=== PATIENT | male | born 1935 | race Caucasian/White ===

== ENCOUNTER 2016-07-09 13:55 | Inpatient (IN) ==
[2016-07-09 16:20] LABS: MANUAL DIFF NEEDED? NO
[2016-07-09 16:23] LABS: BASO% 0.1 % (0.0-0.8); EOS% 0.7 % (0.0-10.0); HEMATOCRIT 44.8 % (42.0-52.0); HEMOGLOBIN 15.6 g/dL (14.0-18.0); IMM GRAN# 0.04 X1000 (0.0-0.04); IMM GRAN% 0.3 % (0.0-0.5); LYMPH# 1.88 X1000 (1.2-3.4); LYMPH% 13.4 % (20.5-51.1); MCH 31.7 PG (27-31); MCHC 34.8 g/dL (33-37); MCV 91.1 FL (81-99); MONO% 8.6 % (1.7-9.3); MPV 8.9 FL (7.4-10.4); NEUT% 76.9 % (42.2-75.2); PLT 217 X1000 (130-400); RBC 4.92 XMIL (4.7-6.1)
[2016-07-09 16:38] LABS: AGAP 12; ALBUMIN 3.2 g/dL (3.5-5.0); ALKALINE PHOSPHATASE 84 U/L (32-122); BUN 22 mg/dL (8-22); CALCIUM 8.6 mg/dL (8.8-10.2); CHLORIDE 97 mmol/L (98-107); CK PROFILE 28 U/L (24-204); COSMO 274; GOT 16 U/L (10-34); GPT 13 U/L (10-44); POTASSIUM 4.4 mmol/L (3.5-5.1); SODIUM 136 mmol/L (136-145); TCO2 27 mmol/L (25-35); TOTAL BILIRUBIN 0.97 mg/dL (0.20-1.00); TOTAL PROTEIN 6.9 g/dL (6.3-8.3)
[2016-07-09] MEDS ORDERED: ATROVENT NEB INH SCH (16:45)
[2016-07-09] MEDS: DUONEB (A & A) INH SCH ×2 (16:52→20:16)
[2016-07-09] MEDS ORDERED: MYCOSTATIN SUSP PO SCH (17:00)
[2016-07-09] MEDS ORDERED: ALBUTEROL NEB INH SCH (17:00)
[2016-07-09 17:04] LABS: ALLEN TEST YES; BLOOD TYPE ARTERIAL; DRAW SITE R RADIAL; METHB 1.8 % (0.0-1.5); O2(CT) 19.3 mL/dL (15.0-23.0); PCO2(98.6) 38 mmHg (35-45); PO2(98.6) 55 mmHg (60-100); SAMPLE BLOOD; SAO2 93.9 % (95.0-100.0); THB 15.4 g/dL (11.5-17.4)
[2016-07-09 17:05] LABS: MODALITY CANNULA
[2016-07-09] MEDS: PROTONIX IV SCH (17:05)
[2016-07-09] MEDS: SOLU-MEDROL IV SCH ×2 (17:06→23:52)
[2016-07-09] MEDS: SODIUM CHLORIDE 0.9% INJ SCH (17:12)
[2016-07-09] MEDS: MYCOSTATIN SUSP PO SCH ×2 (17:14→19:54)
[2016-07-09] MEDS: NS 1,000 ML IV SCH (17:16)
--- NOTE | 2016-07-09 17:50 | Diag Imaging Result Document ---
PROCEDURE NAME: CHEST-2 VIEWS - 07/09/2016 CHEST TWO-VIEWS: COMPARISON: Compared to 12/05/2015. FINDINGS: Heart size is normal. There is mild subsegmental atelectasis or scarring at the lateral left base. The remainder of the lungs appear essentially clear. The lungs appear mildly hyperexpanded which may relate to COPD. There is an apparent tiny right pleural effusion. There is no pneumothorax seen. There is thoracic spondylosis or ankylosis noted. IMPRESSION: 1. Mildly hyperexpanded lungs which may relate to COPD. Mild subsegmental atelectasis or scarring at left base. No evidence of pneumonia. 2. Apparent tiny right pleural effusion. No pneumothorax.
--- NOTE | 2016-07-09 18:17 | HISTORY AND PHYSICAL ---
CHIEF COMPLAINT: Shortness of breath. HISTORY OF PRESENT ILLNESS: An 81-year-old white gentleman, known case of advanced COPD, not doing well for 7-10 days. The patient had increasing cough, chest congestion, shortness of breath. The patient went to Urgent Care. He was prescribed Levaquin and prednisone. After taking Levaquin the patient did have sore mouth, diarrhea, increasing shortness of breath. The patient thought he was allergic to Levaquin, stopped taking medication. The patient came to see me. I evaluated the patient, changed antibiotics to doxycycline. The patient claims he was not feeling well. Not able to eat well. He was getting more short of breath and wheezing, decreased exercise tolerance. The patient was using his home oxygen and nebulizer treatment. Basically the patient was not responding to outpatient treatment. I evaluated patient in my office. The patient had bilateral diffuse wheezing. Decided to admit him for further care. The patient was losing weight. He denied any typical chest pain, palpitation, orthopnea or PND. No abdominal pain. The patient did have mild nausea. No vomiting. No diarrhea, blood, or mucus in the stool. Denied dysuria or hematuria. Patient does have runny nose. No sinus drainage, unquantified weight loss. The patient does feel depressed at times due to his underlying medical condition. No joint swelling or redness. No focal weakness. No further history available at this time. ALLERGIES: No known drug allergy. HOME MEDICATIONS: Include Coreg, Imdur, Synthroid, Zocor. PAST MEDICAL HISTORY: Significant for hypertension, hypothyroidism, hyperlipidemia, gastritis, COPD. The patient is on home oxygen and nebulizer treatment. PERSONAL HISTORY: Single, nonsmoker. Denied alcohol or substance abuse. FAMILY HISTORY: Noncontributory. REVIEW OF SYSTEMS: As per HPI. PHYSICAL EXAMINATION: GENERAL: Elderly white gentleman in mild distress. VITAL SIGNS: On admission blood pressure 126/68, pulse 85, respiration 22, temperature 97.8 degrees. SKIN: Normal turgor. No rash or petechiae. HEENT: Head atraumatic, normocephalic. [place] conjunctivae. Anicteric sclerae. Extraocular muscle movement normal. Fundus cannot be penetrated. Good oral hygiene. The patient does have a sore tongue. No oral thrush. Ear and nose benign. NECK: Supple. No JVD, thyromegaly or lymphadenopathy. CHEST: Bilateral good air entry present. Bilateral expiratory wheezing. No rales. CARDIOVASCULAR: S1 and S2 heard. No gallop or thrill. ABDOMEN: Soft, globular. Bowel sounds present. EXTREMITIES: No cyanosis, clubbing. No acute DVT. BOOK AUTHOR: Alert, awake, able to move all 4 limbs. LABORATORY DATA: Did reveal leukocytosis with left shift. Blood gas, pH 7.4, pCO2 38, PO2 55, O2 saturation was 89.4, this was done on 2 L. Electrolytes were fairly benign. Cardiac isoenzymes negative. ProBNP was 550. Chest x-ray, official result is pending. CONSIDERATION: 1. Chronic obstructive pulmonary disease exacerbation, not responding to outpatient treatment. 2. Chronic hypoxemic respiratory failure. 3. Gastritis and reflux disease. 4. Hypothyroidism. 5. History of benign prostatic hypertrophy. 6. Coronary artery disease. 7. Hyperlipidemia. PLAN: Admit patient to hospital. Oxygen, IV steroid, pulmonary toilet. Patient reaction to Levaquin was more of a sore tongue and diarrhea. I am going to resume Levaquin. Overall plan discussed at length with the patient and family. They are in agreement. Will do GI and DVT prophylaxis. Resume his home medicine.
[2016-07-09] MEDS: ZOCOR PO SCH (19:54)
[2016-07-09] MEDS: COREG PO SCH (19:54)
[2016-07-10] MEDS: NS 1,000 ML IV SCH (02:56)
[2016-07-10] MEDS: DUONEB (A & A) INH SCH ×4 (03:30→20:17)
--- NOTE | 2016-07-10 05:33 | EKG Report ---
Test Performed on : 07/09/2016 6:14:35 PM Test Reason : COPD exacerbation Blood Pressure : / mmHG Vent. Rate : 081 BPM Atrial Rate : 081 BPM P-R Int : 200 ms QRS Dur : 104 ms QT Int : 410 ms P-R-T Axes : 072 -06 066 degrees QTc Int : 476 ms Normal sinus rhythm. Normal ECG When compared with ECG of 24-SEP-2013 10:38, Criteria for Inferior infarct are no longer present Nonspecific T wave abnormality no longer evident in Lateral leads Confirmed by Bernadine WHALEY, Ye Medrano ([id number]) on 07/11/2016 7:58:38 PM
[2016-07-10] MEDS: LOVENOX SUBQ SCH (06:09)
--- NOTE | 2016-07-10 07:01 | PROGRESS NOTE ---
DATE: 07/10/2016 SUBJECTIVE: Mr. White is feeling some better. Shortness of breath is less. Does have cough and chest congestion. No nausea or vomiting. Oral soreness is less. Patient admitted with COPD exacerbation, not responding to outpatient treatment. OBJECTIVE: Vital Signs: Vital signs reviewed. Neck: Supple. No JVD. Lungs: Bilateral occasional wheezing. CVS: S1 and S2 heard. Abdomen: Soft, globular. Bowel sounds present. BARREL ENDSHAKER ADJUSTER: Alert, awake. Able to move all 4 limbs. Laboratory Data: Chest x-ray results reviewed. CONSIDERATIONS: 1. Chronic obstructive pulmonary disease exacerbation. The patient had leukocytosis. I am going to add Levaquin. His reaction to Levaquin was oral sores. 2. Oral sores could be due to Ayla. Patient is on nystatin and Magic Mouthwash. 3. Hyperlipidemia. 4. Gastritis. PLAN: Labs and medication noted. Overall plan discussed with the patient and he is in agreement.
[2016-07-10] MEDS: LEVAQUIN 500 MG/D5W 100 ML IV SCH (07:35)
[2016-07-10] MEDS: SOLU-MEDROL IV SCH ×2 (08:04→16:00)
[2016-07-10] MEDS: SYNTHROID PO SCH (08:09)
[2016-07-10] MEDS: COREG PO SCH ×2 (08:09→21:39)
[2016-07-10] MEDS: IMDUR PO SCH (08:09)
[2016-07-10] MEDS: MBX SOLUTION MT SCH ×3 (08:10→16:20)
[2016-07-10] MEDS: MYCOSTATIN SUSP PO SCH ×4 (08:16→21:39)
[2016-07-10] MEDS ORDERED: LASIX IV ONE (11:28)
--- NOTE | 2016-07-10 12:32 | Diag Imaging Result Document ---
PROCEDURE NAME: CHEST-PORTABLE - 07/10/2016 AP PORTABLE CHEST AT 1200 HOURS: FINDINGS: Compared to the previous study of 07/09/2016, there has been no significant change in the appearance of the chest. Compared to 12/05/2015, there has been some increase in prominence of an opacity over the lingula. There is an apparent area of fibrosis laterally in the lingula seen on the CT scan of 09/24/2013 which is probably responsible for this abnormality. IMPRESSION: No acute disease.
[2016-07-10 13:25] LABS: URINE MICRO REVIEW NEEDED? NO; URINE SOURCE CLEAN CATCH
[2016-07-10 13:32] LABS: BILIRUBIN URINE NEGATIVE (NEGATIVE); BLOOD URINE NEGATIVE (NEGATIVE); COLOR YELLOW; GLUCOSE URINE NEGATIVE (NEGATIVE); LEUKOCYTES URINE NEGATIVE (NEGATIVE); NITRITE URINE NEGATIVE (NEGATIVE); PH URINE 5.5; PROTEIN URINE NEGATIVE (NEGATIVE); SP GRAVITY URINE 1.016; TURBIDITY URINE CLEAR (CLEAR); UROBILINOGEN URINE NORMAL (NORMAL)
[2016-07-10 13:33] LABS: UR EPITHELIAL CELLS <10 /HPF (<10); URINE BACTERIA NEGATIVE /HPF; URINE RBC <10 /HPF (<10); URINE WBC <10 /HPF (<10)
[2016-07-10] MEDS: SODIUM CHLORIDE 0.9% INJ SCH (16:00)
[2016-07-10] MEDS: PROTONIX IV SCH (16:00)
[2016-07-10] MEDS: ZOCOR PO SCH (21:38)
[2016-07-11] MEDS: SOLU-MEDROL IV SCH ×3 (00:26→15:38)
[2016-07-11] MEDS: DUONEB (A & A) INH SCH ×4 (03:04→21:05)
[2016-07-11] MEDS: LOVENOX SUBQ SCH (05:56)
[2016-07-11 07:25] LABS: HEMATOCRIT 44.8 % (42.0-52.0); HEMOGLOBIN 15.4 g/dL (14.0-18.0); IMM GRAN# 0.07 X1000 (0.0-0.04); IMM GRAN% 0.3 % (0.0-0.5); LYMPH# 0.71 X1000 (1.2-3.4); LYMPH% 3.1 % (20.5-51.1); MANUAL DIFF NEEDED? YES; MCHC 34.4 g/dL (33-37); MCV 90.1 FL (81-99); MONO# 0.76 X1000 (0.11-0.59); MONO% 3.4 % (1.7-9.3); MPV 9.5 FL (7.4-10.4); NEUT% 93.2 % (42.2-75.2); PLT 249 X1000 (130-400); RBC 4.97 XMIL (4.7-6.1)
--- NOTE | 2016-07-11 07:36 | PROGRESS NOTE ---
DATE: 07/11/2016 SUBJECTIVE: Mr. White is feeling better. Yesterday, patient was more short of breath, congested, evidence of fluid overload. We stopped fluid. We gave him some Lasix. The patient did well. His O2 saturation was low, which improved. PHYSICAL EXAMINATION: Vital Signs: Vital signs noted. Neck: Supple. No JVD. Lungs: Bilateral good air entry present. Occasional wheezing. CVS: S1 and S2 heard. Abdomen: Soft, globular. Bowel sounds present. AGENCY OWNER: Alert, awake. Able to move all 4 limbs. No acute DVT. CONSIDERATION: 1. Patient admitted with acute exacerbation of chronic obstructive pulmonary disease. The patient does have advanced chronic obstructive pulmonary disease. 2. Chronic respiratory failure. 3. Hypothyroidism. 4. Hyperlipidemia. 5. Oral sores. 6. Gastritis. PLAN: Plan is to taper his steroid to 40 mg IV q.8 tomorrow. If clinical condition permits, we will plan discharging patient home over the weekend. His repeat chest x-ray results reviewed. We will get physical therapy evaluation. I will also check his blood work today. Overall plan discussed at length with the patient and he is in agreement.
[2016-07-11 07:57] LABS: ALBUMIN 3.2 g/dL (3.5-5.0); CALCIUM 8.5 mg/dL (8.8-10.2); MAGNESIUM 2.4 mg/dL (1.5-2.7); POTASSIUM 3.9 mmol/L (3.5-5.1); TOTAL BILIRUBIN 0.37 mg/dL (0.20-1.00); TOTAL PROTEIN 6.9 g/dL (6.3-8.3)
[2016-07-11 07:58] LABS: LYMPHS 4 % (21-51); MONO 2 % (1-9)
[2016-07-11] MEDS: COREG PO SCH (08:25)
[2016-07-11] MEDS: SYNTHROID PO SCH (08:25)
[2016-07-11] MEDS: IMDUR PO SCH (08:25)
[2016-07-11] MEDS: MYCOSTATIN SUSP PO SCH ×4 (08:26→23:52)
[2016-07-11] MEDS: LEVAQUIN 500 MG/D5W 100 ML IV SCH (08:26)
[2016-07-11] MEDS: MBX SOLUTION MT SCH ×3 (08:26→19:00)
[2016-07-11] MEDS: DUONEB (A & A) INH PRN (11:19)
[2016-07-11] MEDS: SODIUM CHLORIDE 0.9% INJ SCH (15:38)
[2016-07-11] MEDS: PROTONIX IV SCH (15:38)
[2016-07-11] MEDS: ZOCOR PO SCH (23:52)
[2016-07-12] MEDS: SOLU-MEDROL IV SCH ×4 (02:00→19:00)
[2016-07-12] MEDS: COREG PO SCH ×3 (02:00→21:03)
[2016-07-12] MEDS: DUONEB (A & A) INH SCH ×4 (03:00→20:02)
[2016-07-12] MEDS: LOVENOX SUBQ SCH (05:34)
--- NOTE | 2016-07-12 10:16 | PROGRESS NOTE ---
DATE: 07/12/2016 Mr. White was admitted with COPD in acute exacerbation. He has some expiratory wheezing at the present time. He is using oxygen. Overall condition is unchanged. He has COPD. He has a history of gastritis and reflux disease and has a history of hyperlipidemia. Will continue the current management on him. He is getting IV Levaquin. He is also on methylprednisone, which I am going to reduce to 40 mg q.8 hours. -8
[2016-07-12] MEDS: LEVAQUIN 500 MG/D5W 100 ML IV SCH (10:50)
[2016-07-12] MEDS: MYCOSTATIN SUSP PO SCH ×4 (11:01→21:03)
[2016-07-12] MEDS: SYNTHROID PO SCH (11:02)
[2016-07-12] MEDS: MBX SOLUTION MT SCH ×3 (11:02→18:53)
[2016-07-12] MEDS: IMDUR PO SCH (11:02)
[2016-07-12] MEDS: DUONEB (A & A) INH PRN ×2 (11:23→22:44)
[2016-07-12] MEDS: PROTONIX IV SCH (18:52)
[2016-07-12] MEDS: SODIUM CHLORIDE 0.9% INJ SCH (18:53)
[2016-07-12] MEDS: ZOCOR PO SCH (21:03)
[2016-07-13] MEDS ORDERED: MAGNESIUM SULFATE 1 GM/D5W 1 GM/100 ML IVPB IV ONE (00:52)
[2016-07-13] MEDS: SOLU-MEDROL IV SCH ×3 (02:00→18:00)
[2016-07-13] MEDS: DUONEB (A & A) INH SCH ×4 (03:20→20:10)
[2016-07-13] MEDS: LOVENOX SUBQ SCH (06:00)
[2016-07-13] MEDS: SYNTHROID PO SCH (09:00)
[2016-07-13] MEDS: LEVAQUIN 500 MG/D5W 100 ML IV SCH (09:00)
[2016-07-13] MEDS: MBX SOLUTION MT SCH ×3 (09:00→17:00)
[2016-07-13] MEDS: IMDUR PO SCH (09:00)
[2016-07-13] MEDS: COREG PO SCH ×2 (09:00→22:00)
[2016-07-13] MEDS: MYCOSTATIN SUSP PO SCH ×4 (09:00→22:00)
--- NOTE | 2016-07-13 14:20 | PROGRESS NOTE ---
DATE: 07/12/[address] Callejas. INTERVAL HISTORY: The patient is supposed to go home this weekend and around midnight patient had 2 episodes of 13-beat nonsustained ventricular tachycardia completely asymptomatic. He denies of any chest pain. Continues to have a little bit shortness of breath. Patient has been in and out of bed asking for nebulizers treatment. Patient was admitted on 07/09/2016. Past medical history, past surgical history, medicines were reviewed. REVIEW OF SYSTEMS: HEENT: No headache. No vision problems. No earache. No sore throat. Neck: No neck pain. No goiter. Cardiopulmonary: No chest pain, no palpitations, shortness of breath. No PND. No orthopnea. No edema. GI: No nausea, vomiting, abdominal pain. PHYSICAL EXAMINATION: Vital Signs: He is afebrile, blood pressure is 124/64. Not in respiratory distress. HEENT: Atraumatic, normocephalic. Prominent eyeballs. Neck: Is supple. No lymphadenopathy. JVD is not elevated. Chest: Bilateral wheezing. Heart: Distant heart sounds. No murmurs appreciated. Belly: Soft, obese, and nontender. Extremities: No peripheral edema. Neurologic: No obvious deficits. INVESTIGATIONS: EKG showing normal sinus, nothing acute. QT interval is normal, 465 ms. Cardiac enzymes were negative. The patient was given 1 dose of magnesium sulfate. ASSESSMENT AND PLAN: 1. Chronic obstructive pulmonary disease exacerbation on basically nebulizers, IV Solu-Medrol 40 mg q.8 and Levaquin. 2. Nonsustained ventricular tachycardia x2 asymptomatic. Rule out structural heart disease and will hold the discharge and consult with computer hardware developer contract design agent. 3. DVT prophylaxis with Lovenox. 4. Hypothyroidism on Synthroid. 5. Gastrointestinal prophylaxis with IV Protonix. 6. Hypertension on Coreg, isosorbide. 7. Hyperlipidemia on Zocor. 8. Oral thrush on nystatin. 9. Will repeat the labs in the morning. Will discuss with Dr. Paul who is on-call for cardiology. 10. Will follow up. cc: MD Tai Braun MD
[2016-07-13] MEDS: PROTONIX IV SCH (16:00)
[2016-07-13] MEDS: SODIUM CHLORIDE 0.9% INJ SCH (16:00)
--- NOTE | 2016-07-13 21:33 | EKG Report ---
Test Performed on : 07/13/2016 00:57:20 AM Test Reason : SOB, COPD exac. Blood Pressure : / mmHG Vent. Rate : 069 BPM Atrial Rate : 069 BPM P-R Int : 180 ms QRS Dur : 104 ms QT Int : 448 ms P-R-T Axes : 071 -20 048 degrees QTc Int : 480 ms Normal sinus rhythm. Prolonged QT Abnormal ECG When compared with ECG of 09-JUL-2016 18:14, No significant change was found Confirmed by Siddhartha WHALEY, Oscar Raphael ([id number]) on 07/14/2016 12:47:30 PM
--- NOTE | 2016-07-13 21:33 | EKG Report ---
Test Performed on : 07/13/2016 07:13:33 AM Test Reason : admission Blood Pressure : / mmHG Vent. Rate : 069 BPM Atrial Rate : 069 BPM P-R Int : 190 ms QRS Dur : 104 ms QT Int : 434 ms P-R-T Axes : 066 -12 047 degrees QTc Int : 465 ms Normal sinus rhythm. Normal ECG When compared with ECG of 13-JUL-2016 07:12, (Unconfirmed) No significant change was found Confirmed by Siddhartha WHALEY, Oscar Raphael ([id number]) on 07/14/2016 12:54:32 PM
[2016-07-13] MEDS: ZOCOR PO SCH (22:00)
[2016-07-14] MEDS: SOLU-MEDROL IV SCH ×2 (02:52→16:05)
[2016-07-14] MEDS: DUONEB (A & A) INH SCH ×4 (03:14→20:15)
[2016-07-14 04:40] LABS: ALLEN TEST YES; BE 3.8 mmoll (-3.0-3.0); BLOOD TYPE ARTERIAL; DRAW SITE R RADIAL; METHB 1.8 % (0.0-1.5); O2(CT) 17.9 mL/dL (15.0-23.0); PCO2(98.6) 42 mmHg (35-45); SAMPLE BLOOD; THB 14.8 g/dL (11.5-17.4); pH(98.6) 7.44 (7.35-7.45)
[2016-07-14 04:41] LABS: MODALITY ROOM AIR; PO2(98.6) 46 mmHg (60-100)
[2016-07-14] MEDS: LOVENOX SUBQ SCH (07:01)
[2016-07-14 07:55] LABS: BASO% 0.1 % (0.0-0.8); HEMATOCRIT 43.3 % (42.0-52.0); HEMOGLOBIN 14.9 g/dL (14.0-18.0); IMM GRAN# 0.02 X1000 (0.0-0.04); IMM GRAN% 0.2 % (0.0-0.5); LYMPH# 0.46 X1000 (1.2-3.4); LYMPH% 4.7 % (20.5-51.1); MANUAL DIFF NEEDED? YES; MCH 31.9 PG (27-31); MCHC 34.4 g/dL (33-37); MCV 92.7 FL (81-99); MONO# 0.51 X1000 (0.11-0.59); MONO% 5.3 % (1.7-9.3); MPV 9.6 FL (7.4-10.4); NEUT% 89.7 % (42.2-75.2); PLT 256 X1000 (130-400); RBC 4.67 XMIL (4.7-6.1)
[2016-07-14 08:00] LABS: AGAP 9; BUN 38 mg/dL (8-22); CALCIUM 8.2 mg/dL (8.8-10.2); CHLORIDE 104 mmol/L (98-107); CK PROFILE 23 U/L (24-204); COSMO 294; MAGNESIUM 2.7 mg/dL (1.5-2.7); POTASSIUM 4.4 mmol/L (3.5-5.1); SODIUM 142 mmol/L (136-145); TCO2 29 mmol/L (25-35)
[2016-07-14 08:32] LABS: LYMPHS 10 % (21-51); MONO 4 % (1-9)
[2016-07-14] MEDS: MBX SOLUTION MT SCH ×3 (08:40→17:50)
[2016-07-14] MEDS: LEVAQUIN 500 MG/D5W 100 ML IV SCH (08:43)
[2016-07-14] MEDS: IMDUR PO SCH (08:43)
[2016-07-14] MEDS: SYNTHROID PO SCH (08:43)
[2016-07-14] MEDS: COREG PO SCH ×2 (08:43→21:36)
[2016-07-14] MEDS: MYCOSTATIN SUSP PO SCH ×4 (08:45→21:44)
[2016-07-14] MEDS: DUONEB (A & A) INH PRN ×2 (09:01→22:28)
--- NOTE | 2016-07-14 13:05 | Diag Imaging Result Document ---
PROCEDURE NAME: CHEST-1 VIEW - 07/14/2016 PORTABLE CHEST: Compared with 07/10/2016. FINDINGS: Heart size is normal. There are possibly mild COPD changes. The lungs appear stable and grossly clear of acute changes. There is no pleural effusion or pneumothorax identified. IMPRESSION: Stable chest.
--- NOTE | 2016-07-14 13:30 | PROGRESS NOTE ---
DATE: 07/14/[address] Callejas. SUBJECTIVE: The patient is not offering any complaints. No palpitations. I did review the can line examiner. He did not have any further episodes of nonsustained ventricular tachycardia. He had 2 episodes. He has been out of the bed, eating well. No chest pain, palpitations. A little bit of shortness of breath. The patient's daughter was at the bedside. PAST MEDICAL HISTORY: Reviewed. PAST SURGICAL HISTORY: Reviewed. MEDICATIONS: Reviewed. REVIEW OF SYSTEMS: None reported. PHYSICAL EXAMINATION: Vital Signs: Afebrile. Vitals are stable. HEENT: Atraumatic, normocephalic. Pupils equal, reactive to light. Neck: Supple. Chest: Scattered wheezing. Heart: Sounds are regular. Abdomen: Belly is soft, obese, nontender. Good bowel sounds. No peripheral edema, cyanosis. No obvious neurological deficits. INVESTIGATIONS: White cell count 9.6, came down from 22, hematocrit 43, platelets 256,000. ABG pH is 7.44, pCO2 42, PO2 46 on room air. SMA 7: Sodium 142, potassium 4.4, chloride 104, BUN 38, creatinine 1.1, glucose 135, magnesium 2.7. Cardiac enzymes are normal. ProBNP 862. ASSESSMENT AND PLAN: 1. Chronic obstructive pulmonary disease. Basically he needs home oxygen based on the ABGs. Decreased with IV Solu-Medrol 40 mg q.12 hours. On Levaquin. 2. Nonsustained ventricular tachycardia. Magnesium is normal. Cardiac enzymes are normal. Waiting for Dr. Paul to consult. Discussed with the patient's daughter we will hold discharging home until the branch examiner sees him. Dr. Callejas is going to follow up. cc: MD Tai Braun MD
--- NOTE | 2016-07-14 16:10 | CONSULTATION ---
DATE OF CONSULTATION: 07/14/2016 REQUESTING PHYSICIAN: Hospitalist Service REASON FOR CONSULTATION: Ventricular tachycardia. HISTORY OF PRESENT ILLNESS: Mr. White is an 81-year-old male who was admitted to the hospital about 4 days ago on 07/09/2016. The patient presented to Dr. Callejas' s office with complaints of increasing dyspnea. The patient has a known case of advanced COPD. He was treated medically for several days; however, he did not seem to improve, and therefore admission to the hospital for IV medication and in-hospital care was recommended. The patient over the course of the past few days has gradually noted improvement. He denies having any chest pain; however, he does get tightness from time to time, and that seems to get better whenever he uses inhalers. He has not experienced any angina. He has not experienced any dizziness, palpitations or syncope. He has not experienced any claudication or swelling of the legs. There are no varicose veins and no evidence of redness or pain in the calves. On the evening of 07/12/2016, his gambling monitor revealed 1 run of 15 beats of nonsustained ventricular tachycardia that was not noted by the patient. That led to this consultation. PAST MEDICAL HISTORY: Positive for long-term diagnosis of COPD. The patient has been on home oxygen 2.5 L for a while. He gets periodic exacerbations. The patient has a history of hypertension also for a number of years. He has history of hyperlipidemia. In 2008, he was diagnosed with severe coronary artery disease after he underwent a left heart catheterization at [facility] under Dr. Malcom Hall. They found a complete occlusion of the mid to distal circumflex and also a severe lesion in the right coronary artery. He has been clinically stable from this viewpoint. The last time that he had an imaging study was in 2012, and at that time they reported on an echocardiogram that his ejection fraction was in the order of 55% with no evidence of any significant wall motion abnormality. His cardiac status, as far as we know, has not changed since then. Of note, his 12-lead electrocardiogram done at 7:00 a.m. on 07/13/2016 shows nothing really of any significance. His history is also positive for previous pneumonia. He has had some carotid artery stenosis. He has had hypothyroidism. He has been diagnosed with prostate cancer. PAST SURGICAL HISTORY: He has had thyroid surgery, prostate surgery. SOCIAL HISTORY: Positive for being a . He has 2 grownup daughters. He used to work for [employer] and retired eventually from [employer] in [place] in 2001. He smoked up until 10 years ago, and then he quit. FAMILY HISTORY: Not significant for any major heart problem. HOME MEDICATIONS: Atrovent inhaler and albuterol nebulizer as needed, levothyroxine 88 mcg daily, carvedilol 6.25 twice a day, simvastatin 20 mg at bedtime, isosorbide mononitrate 60 mg daily. REVIEW OF SYSTEMS: He is chronically short of breath, and other than that, there is nothing really remarkable. He has had poor appetite lately. He has lost some weight. His weight now is 156 pounds. The last time he was seen at the office, it was 164. He was seen in the office last time in 08/2015. Multiple systems were reviewed, and no other significant findings. PHYSICAL EXAMINATION: Blood pressure is 158/72, temperature 97.4, pulse 78, respirations 14. He is awake, alert and oriented, chronically ill, in no distress. HEENT is unremarkable. Chest: Multiple rales bilaterally with diminished breath sounds. Decreased excursion of the lungs. Hyperresonance to percussion. Heart sounds are regular and rhythmic. I do not hear a gallop or murmur. Heart sounds are muffled by the respiratory noises. Abdomen: Nontender, soft. No hepatomegaly. Extremities: Good pulses. No peripheral edema. Neurologic: He moves all 4 extremities, has no obvious deficits. He is cooperative, alert and oriented x3. DIAGNOSTIC DATA: Blood work shows sodium 142, potassium 4.4, BUN is 38, creatinine 1.1, chloride 104, carbon dioxide 29. Blood gas on room air shows pO2 of 46, pCO2 of 42, pH of 7.44. White count is 9690, hemoglobin 14.9 g, with 86% neutrophils, platelet count is normal. Chest x-ray done on 07/10/2016 was reported as normal. Of note, multiple troponin levels have been checked over the course of the past 5 days, and all of them are negative. His Pro BNP level has been barely elevated, initially at 550, 670 and then 862 pg/ml. IMPRESSION: 1. Asymptomatic episode of nonsustained ventricular tachycardia. 2. History of severe coronary artery disease, 2-vessel disease, diagnosed in 2008, without any ongoing symptoms of angina pectoris. 3. Exacerbation of severe advanced chronic obstructive pulmonary disease, on termite control servicer home oxygen. 4. History of hypertension. 5. History of hyperlipidemia. 6. History of hypothyroidism. RECOMMENDATIONS: From a cardiology viewpoint, I do not think we need to do anything different. We really have to focus on treating his COPD exacerbation. He has no specific symptoms attributable to this incidental finding. No further testing is recommended, and please refer the patient back to the office for followup upon discharge. Consideration may be given at watching him for fluid overload if IV fluids are continued over the course of the next few days. Pantoine Rivas may be helpful in that case. Thank you for asking us to participate in his evaluation. Best regards. cc: MD Tai Navas MD MTDD
[2016-07-14] MEDS: SODIUM CHLORIDE 0.9% INJ SCH (17:10)
[2016-07-14] MEDS: PROTONIX IV SCH (17:10)
[2016-07-14] MEDS: ZOCOR PO SCH (21:36)
[2016-07-15] MEDS: DUONEB (A & A) INH SCH ×3 (03:03→15:16)
[2016-07-15] MEDS: LOVENOX SUBQ SCH (05:56)
[2016-07-15] MEDS: SOLU-MEDROL IV SCH (05:56)
--- NOTE | 2016-07-15 08:00 | PROGRESS NOTE ---
DATE: 07/15/2016 SUBJECTIVE: Mr. White is feeling better. Chest congestion and cough improving. Shortness of breath is less. No fever or chills. Oral intake is fair. No nausea or vomiting. The patient did have an episode of asymptomatic ventricular tachycardia, short run. Commercial Lines Account Assistant recommendation reviewed. OBJECTIVE: Vital signs: Noted. Neck: Supple. No JVD. Lungs: Bilateral good air entry present. CVS: S1 and S2 heard. Abdomen: Soft, globular. Bowel sounds present. TECHNOLOGY ADMINISTRATOR: Alert, awake. Able to move all 4 limbs. CONSIDERATIONS: 1. Chronic obstructive pulmonary disease exacerbation. 2. Bronchitis. 3. Ventricular tachycardia. 4. Hypertension. 5. Hypothyroidism. PLAN: Labs and medication noted. I am going to stop Solu-Medrol. Continue the rest of the treatment. Ambulate the patient. If clinical condition permits, I am planning to discharge patient home today. cc: Tai Callejas MD
[2016-07-15] MEDS ORDERED: PREDNISONE PO SCH (09:00)
[2016-07-15] MEDS: SYNTHROID PO SCH (09:48)
[2016-07-15] MEDS: COREG PO SCH (09:48)
[2016-07-15] MEDS: IMDUR PO SCH (09:48)
[2016-07-15] MEDS: LEVAQUIN 500 MG/D5W 100 ML IV SCH (09:48)
[2016-07-15] MEDS: MYCOSTATIN SUSP PO SCH (09:49)
[2016-07-15] MEDS: MBX SOLUTION MT SCH (09:49)
[2016-07-15] MEDS ORDERED: PROTONIX PO SCH (16:00)
[2016-07-15 17:24] VITALS: BP 149/57
--- NOTE | 2016-08-15 20:19 | DISCHARGE SUMMARY ---
ADMISSION DATE: 07/09/2016 DISCHARGE DATE: 07/15/2016 FINAL DISCHARGE DIAGNOSES: 1. Chronic obstructive pulmonary disease exacerbation most likely due to bronchitis, ventricular tachycardia, hypertension, hypothyroidism, oral sores, gastritis and reflux disease. 2. Coronary artery disease. HISTORY OF PRESENT ILLNESS: Mr. White is an 81-year-old, white gentleman admitted with chest congestion, cough, shortness of breath, not responding to outpatient treatment. The patient was getting more sicker. He had oral sores. Patient was not able to take anything by mouth. He was losing weight. The patient went to Urgent Care. He was given medication but the patient was getting sicker and weak. I evaluated the patient in the office and decided to admit him for further care. HOSPITAL COURSE: Patient was treated with IV hydration, IV steroids, pulmonary toilet, bronchodilator care. The patient developed fluid overload which was treated with IV Lasix. We continued his home medicine. The patient was given Magic Mouthwash. We gradually advanced his diet. The patient's clinical condition stabilized and improved. His weakness improved, shortness of breath improved. Hospital course complicated by ventricular tachycardia. Cardiology consultation obtained. Recommendations reviewed. The patient was doing much better. He received maximum benefit of hospitalization. His weakness improved. Oral intake was getting better. I decided to discharge the patient home. I re-evaluated the patient again that evening. Lab Data: WBC count 9.69, hemoglobin 14.9, hematocrit 43.3, platelet count 256,000. Electrolytes were fairly benign. BUN 38, creatinine 1.11, proBNP 862, cardiac isoenzymes were negative. Urinalysis was benign. The patient's blood gas was pH 7.44, pCO2 was 42, PO2 was 46. This was done on room air. The patient does have home oxygen and nebulizer treatments. The patient underwent a chest x-ray on the day of discharge and it was a stable chest. The patient was discharged home on tapering dose of steroid, antibiotics, Magic Mouthwash, continue home medicines, home oxygen and nebulizer treatment. Follow up with me in a week. In case of more distress, call us back or go to the emergency room. OVERALL DISCHARGE CONDITION: Satisfactory. cc: Tai Callejas MD
== END 2016-07-15 18:19 | disposition home or self-care (01) ==
LOC: DIRADM 13:55 → 3N 14:40
PROVIDERS: ADMIT Internal Medicine; ATTEND Internal Medicine